=== PATIENT | male | born 1945 | race Asian ===

== ENCOUNTER 2017-12-07 11:40 | Emergency (ER) | payer MEDICARE, OTHER, SELFPAY ==
[2017-12-07] VITALS (11 sets, daily range): BP systolic 123–156; BP diastolic 58–92; PULSE 53–67; RESP 12–18; TEMP 36.3; O2SAT 97–99; BMI 25.8
--- NOTE | 2017-12-07 12:25 | DI.CT.S_ITS ---
PROCEDURE: CT ANGIO HEAD AND NECK INDICATIONS: new headache, retroorbital pain and intermittent blurry visi TECHNIQUE: Pre-contrast 4.5 mm thick sections acquired from the foramen magnum to the vertex. After the administration of intravenous contrast, 1 mm thick sections acquired from the aortic arch through the [place] of [place]. Post-contrast 4.5 mm thick sections then re-acquired from the foramen magnum to the vertex. 3-dimensional ssierkh-pctaaflsx-yrhavuutxz (MIP) and/or volume rendering reformats were acquired of the central intracranial vasculature and neck separately. COMPARISON: None. FINDINGS: Image quality: Excellent. BRAIN: CSF spaces: Ventricles are normal in size and shape. Basal cisterns are patent. No extra-axial fluid collections. Brain: No midline shift. No cranial masses. Punctate hyperdensities are present within the bilateral basal ganglia which likely represent early calcification, but are incompletely characterized. Nation-white matter interface appears intact. Skull and face: Calvarium and facial bones appear intact, without suspicious lesions. Orbits appear normal. Sinuses: Sinuses and mastoids are clear. HEAD CT ANGIOGRAPHY: Anterior circulation: Intracranial internal carotid arteries are normal in size and flow. The flow within the paired anterior cerebral arteries is normal and symmetric. The flow within the middle cerebral arteries is normal and symmetric. The anterior communicating artery is seen. No aneurysms are seen. Posterior circulation: Visualized portions of the vertebral arteries demonstrate normal caliber, and join to form a normal appearing basilar artery. Flow within the posterior cerebral arteries is normal and symmetric. No aneurysms are seen. NECK CT ANGIOGRAPHY: Carotid system: The great vessels demonstrate a conventional anatomy as they arise from the aortic arch. The origins of the common carotid arteries appear patent. The common carotid arteries demonstrate normal caliber and courses. The bifurcation regions are both widely patent. The internal carotid arteries demonstrate normal calibers and courses. Posterior circulation: The origins of the vertebral arteries both appear widely patent. The more superior extracranial portions of both vertebral arteries also demonstrate normal courses and calibers. They join to form a normal appearing basilar artery. Soft tissues: Visualized neck soft tissues demonstrate no suspicious abnormalities. Bones: No suspicious bony lesions. Visualized cervical spine appears normally aligned. IMPRESSION: 1. No stenosis, occlusion, or aneurysm. 2. No acute intracranial findings. Any quantitative measurements of stenosis were performed using NASCET criteria. Dictated by: Elma James M.D. on 12/07/2017 at 13:20 Approved by: Elma James M.D. on 12/07/2017 at 13:29
[2017-12-07 12:35] LABS: Add Manual Diff / Slide Review NO; Basophils Percent Auto 0.5 % (0-2); Eosinophils Percent Auto 2.1 % (2-4); Hematocrit 42.4 % (41-53); Lymphocytes Percent Auto 14.8 % (25-40); Mean Corpuscular HGB Conc 35.3 % (30-36); Mean Corpuscular Hemoglobin 31.7 PG (26-34); Mean Corpuscular Volume 89.7 fL (80-100); Monocytes Percent Auto 9.1 % (3-14); Neutrophils Absolute Auto 4400 /uL (3000-5900); Neutrophils Percent Auto 73.5 % (50-75); Platelet Count 235 X10^3/uL (150-400); Red Blood Cell Count 4.72 X10^6/uL (4.5-5.9); Red Cell Distribution Width 12.1 % (11.6-14.8); White Blood Cell Count 5.9 X10^3/uL (4.5-11.0)
[2017-12-07 12:39] LABS: BUN Creatinine Ratio 21.4 (6-22); Blood Urea Nitrogen 15 mg/dL (9-20); Calcium 9.2 mg/dL (8.4-10.2); Carbon Dioxide 28 mmol/L (22-32); Chloride 98 mmol/L (98-107); Estimated Glomerular Filt Rate > 60.0 mL/min (>60); Glucose 130 mg/dL (80-110); HEMOLYSIS < 15 (0-50); Potassium 3.7 mmol/L (3.4-5.1); Sodium 139 mmol/L (137-145)
[2017-12-07] MEDS: MAGNESIUM SULFATE 2 GM/50 ML PIGGYBACK IV (13:13)
[2017-12-07] MEDS: KETOROLAC 60 MG/2 ML VIAL 15 MG IV (13:13)
[2017-12-07] MEDS: SODIUM CHLORIDE 0.9% 1,000 ML 1000 ML IV (13:14)
[2017-12-07] MEDS: diphenhydrAMINE 50 MG/ML VIAL 25 MG IV ×2 (13:14→16:43)
[2017-12-07] MEDS: PROCHLORPERAZINE 10 MG/2 ML VIAL IV (13:14)
--- NOTE | 2017-12-07 13:23 | PC.NURSE ---
spouse and pt , reports, hx of cva 3 years ago, on plavix,has unsteady gait. reports frontal headache for 5 days, with nausea and visual hard to focus. neuro fast exam, negative
--- NOTE | 2017-12-07 13:24 | PC.NURSE ---
pt reports, just drove in from [place] yesterday, plan to enjoy boating till march.
--- NOTE | 2017-12-07 13:54 | DI.MRI.S_ITS ---
PROCEDURE: MR HEAD/BRAIN WO/W CON INDICATIONS: CVA Hx, Cocciodiomycosis exposure. New onset GRAYSON. TECHNIQUE: Noncontrast axial T1 spin echo, axial T2 fast spin echo, sagittal and axial FLAIR, coronal T2 fast spin echo, axial gradient echo, axial diffusion and ADC through the brain. After the administration of contrast, axial and coronal 3D VIBE or T1 spin echo with fat saturation through the brain. COMPARISON: None. FINDINGS: Image quality: Excellent. CSF Spaces: Basal cisterns are patent. No extra-axial fluid collections. Ventricles are normal in size and shape. Brain: No midline shift. No intracranial bleeds or masses. No abnormal intracranial enhancement. The brainstem appears normal. Diffusion-weighted images demonstrate no acute ischemic insults. No chronic ischemic insults. Normal intravascular flow voids are present. Skull and face: Calvarial marrow is normal in signal. Orbits appear normal. Sinuses: Sinuses and mastoids appear clear. IMPRESSION: 1. No acute intracranial findings. No findings to explain patient's headache. Dictated by: Elma James M.D. on 12/07/2017 at 15:18 Approved by: Elma James M.D. on 12/07/2017 at 15:20
[2017-12-07] MEDS: ACETAMINOPHEN 325 MG TABLET 975 MG PO (16:43)
[2017-12-07] MEDS: HALOPERIDOL 5 MG/ML VIAL 2.5 MG IV (16:43)
--- NOTE | 2017-12-07 17:39 | ED.NEUROSD ---
HPI - Neuro Symptoms/Deficit General Chief Complaint: Neuro Symptoms/Deficit Stated Complaint: BAD HEADACHE,VISION PROBLEM Time Seen by Provider: 12/07/17 12:25 History of Present Illness HPI Narrative: HPI 72-year-old male presents for evaluation of 4-5 days of poorly characterized diffuse headache with a more prominent retro-orbital feature, headache appears to be waxing and waning, headache began gradually, headache is different from prior headaches, headache has had intermittent episodes of mild diplopia/blurry vision; visions currently at baseline. Patient recently returned from [place] where he spent the winter. * Denies changes in vision or hearing, fevers, neck stiffness, rashes, neck pain, temporal pain, jaw pain with chewing, dental pain, minor neck trauma, chiropractic manipulation, or head trauma. * Denies anticoagulation or hypercoaguable history. * No family members with similar symptoms. Unable to identify any higher risk exposures to possible carbon monoxide. M/S/F/SocHx notable for: please see HPI; remainder reviewed with patient and in chart. ROS: Negative constitutional, eye, cardiovascular, pulmonary, GI, , MSK, skin, neurologic, psychiatric, endocrine unless noted in the HPI. Exam Gen: Pleasant, non-toxic appearing, resting comfortably. HEENT: NC, AT. Dentition intact without visible caries. No frontal or maxillary sinus TTP. Temples without TTP bilaterally, equal 2+ temporal artery pulses. No paraspinal posterior neck pain. Resp: CTAB Card: RRR GI: NT/ND : Deferred MSK: No visible deformities, strength and tone WNL. Skin: Normal color with no visible lesions. Neuro: Gen AO x 3, no facial asymmetry, no gaze preference, no slurring of speech. CN II-III: pupils equal and reactive (4->2mm bilaterally); III, IV, : EOMI, V1-V3: sensation to touch bilaterally intact; VII: no facial asymmetry (frown / smile); VIII: no nystagmus; X: phonation intact, uvula midline; XI: trapezius 5/5 bilaterally, XII: tongue midline. Psych: Mood and affect appropriate. Labs / Imaging (pertinent): CTA head and neck: no acute intracranial findings. No stenosis, inclusion, or aneurysm. WBC 5.9, HB 15.0, Na 139, K 3.7 MRI brain: no acute intracranial findings. MDM Previous chart, nursing note, and vitals reviewed. A: 72-year-old male presents for evaluation of 4-5 days of poorly characterized diffuse headache with a more prominent retro-orbital feature, headache appears to be waxing and waning, headache began gradually, headache is different from prior headaches, headache has had intermittent episodes of mild diplopia/blurry vision; visions currently at baseline. Patient recently returned from [place] where he spent the winter. DDx: migraine / tension headache, cluster headache, sentinel bleed/SAH, infection ([employer] vs GRAYSON secondary to non-[employer] focal infection), tumor/mass effect, hypertensive encephalopathy, glaucoma or iritis, idiopathic intracranial hypertension, cavernous sinus thrombosis, temporal arteritis. Evaluation: * Migraine / tension headache - suspect a migraine given the relative exclusion of alternate diagnoses. * Cluster - doubt cluster headache given the absence of unilateral symptoms, eye watering, swelling, or nasal congestion. * [place] bleed/SAH - no evidence by imaging. * Infection - Given lack of rash, meningismus, or fever; doubt bacterial or viral meningitis. Given the patient's wintering in [place] possibility of a coccidiomycosis was considered, however given the absence of meningeal inflammation on MRI as well as a low pretest probability this is been effectively excluded. Similarly the history and exam are without evidence of sinusitis, dental abscesses or clinically significant dental caries. * Mass - no evidence by imaging. * Hypertensive encephalopathy - BP within the brain's autoregulatory zone. * Glaucoma or iritis - As the patient is without reported vision changes, eye pain, and an occular exam without increases in pain on pupillary constriction further evaluation was not pursued. * Ideopathic Intracranial Hypertension - unlikely given the lack of visual symptoms, short duration of symptoms, lack of worsening with valsalva, or more prominent morning symptoms. No evidence by imaging. * Thrombosis - given the lack of identifiable risk factors (preceding facial infection, fever, and hypercoagulability) as well as an absence of deficits on exam doubt both cavernous and venous sinus thrombosis. Furthermore, there is no evidence by imaging. * Temporal Arteritis - given lack of temporally localized headache, temporal tenderness or decreased temporal artery pulse, absent history of jaw claudication or vision changes; doubt. ED Course: 1L NS, 2 g magnesium, 10 mg Compazine, 25 mg diphenhydramine given for initial treatment. Patient with some improvement symptoms. Patient given 2.5 mg haloperidol, acetaminophen, and 25 mg diphenhydramine with significant improvement in symptoms. Disposition: discharge with PCP follow-up. Impression: headache (please reference below for remainder of encounter information) On Anticoagulants: Yes (plavix) Related Data Allergies Allergy/AdvReac Type Severity Reaction Status Date / Time No Known Drug Allergies Allergy Verified 12/07/17 12:35 [facility] Social History Smoking Status: Never smoker Exam Initial Vital Signs Initial Vital Signs: Vital Signs Temperature 97.3 F L 12/07/17 11:42 Pulse Rate 54 L 12/07/17 11:42 Respiratory Rate 18 12/07/17 11:42 Blood Pressure 156/88 H 12/07/17 11:42 Pulse Oximetry 98 12/07/17 11:42 Course Orders Ordered: ED Orders 12/07/17 11:55 Basic Metabolic Panel Stat Complete Blood Count AUTO DIFF Stat 12/07/17 12:25 CT angio head and neck Stat 12/07/17 13:54 MR head/brain wo/w con Stat Discontinued Medications Acetaminophen (Tylenol) 975 mg PO NOW ONE Stop: 12/07/17 15:47 Last Admin: 12/07/17 16:43 Dose: 975 mg Diphenhydramine HCl (Benadryl) 25 mg IV NOW ONE Stop: 12/07/17 12:27 Last Admin: 12/07/17 13:14 Dose: 25 mg Diphenhydramine HCl (Benadryl) 25 mg IV NOW ONE Stop: 12/07/17 15:47 Last Admin: 12/07/17 16:43 Dose: 25 mg Haloperidol (Haldol) 2.5 mg IV NOW ONE Stop: 12/07/17 15:47 Last Admin: 12/07/17 16:43 Dose: 2.5 mg Magnesium Sulfate (Magnesium Sulfate) 2 gm in 50 mls @ 25 mls/hr IV NOW ONE Stop: 12/07/17 14:24 Last Admin: 12/07/17 13:13 Dose: 25 mls/hr Sodium Chloride (Normal Saline 0.9%) 1,000 mls @ 1,000 mls/hr IV BOLUS ONE Stop: 12/07/17 13:24 Last Admin: 12/07/17 13:14 Dose: 1,000 mls/hr Ketorolac Tromethamine (Toradol) 15 mg IV NOW ONE Stop: 12/07/17 12:26 Last Admin: 12/07/17 13:13 Dose: 15 mg Prochlorperazine (Compazine) 10 mg IV NOW ONE Stop: 12/07/17 12:27 Last Admin: 12/07/17 13:14 Dose: 10 mg Vital Signs - 8 hr 12/07/17 11:42 12/07/17 12:22 12/07/17 13:09 Temperature 97.3 F L Pulse Rate 54 L 54 L 56 L Respiratory Rate 18 18 14 Blood Pressure 156/88 H Blood Pressure [Left Arm] 130/92 H 140/66 H Pulse Oximetry 98 98 98 12/07/17 13:14 12/07/17 13:48 12/07/17 14:19 Temperature Pulse Rate 60 53 L 58 L Respiratory Rate 16 15 Blood Pressure 140/66 H Blood Pressure [Left Arm] 143/73 H 132/68 H Pulse Oximetry 99 99 12/07/17 16:19 12/07/17 16:57 12/07/17 17:04 Temperature Pulse Rate 54 L 63 61 Respiratory Rate 12 16 13 Blood Pressure Blood Pressure [Left Arm] 139/82 H 142/67 H 127/66 H Pulse Oximetry 99 97 97 MDM - Neuro Symptoms/Deficit Lab Data Result diagrams: 12/07/17 11:55 12/07/17 11:55 Lab Results 12/07/17 12/07/17 Range/Units 11:55 11:55 WBC 5.9 (4.5-11.0) X10^3/uL RBC 4.72 (4.5-5.9) X10^6/uL Hgb 15.0 (13.5-17.5) g/dL Hct 42.4 (41-53) % MCV 89.7 (80-100) fL MCH 31.7 (26-34) PG MCHC 35.3 (30-36) % RDW 12.1 (11.6-14.8) % Plt Count 235 (150-400) X10^3/uL Neut % (Auto) 73.5 (50-75) % Lymph % (Auto) 14.8 L (25-40) % [place] % (Auto) 9.1 (3-14) % Eos % (Auto) 2.1 (2-4) % Baso % (Auto) 0.5 (0-2) % Neut # (Auto) 4400 (0551-0413) /uL Sodium 139 (137-145) mmol/L Potassium 3.7 (3.4-5.1) mmol/L Chloride 98 (98-107) mmol/L Carbon Dioxide 28 (22-32) mmol/L BUN 15 (9-20) mg/dL Creatinine 0.70 (0.66-1.25) mg/dL Estimated GFR > 60.0 (>60) mL/min BUN/Creatinine Ratio 21.4 (6-22) Glucose 130 H (80-110) mg/dL Calcium 9.2 (8.4-10.2) mg/dL
== END 2017-12-07 18:19 | disposition home or self-care (01) ==
PROVIDERS: Emergency Provider Emergency Medicine
DX: R51 Headache (principal)
CPT/HCPCS: 70496; 70498; 70553; 80048; 81003; 85025; 96361; 96365; 96375; 99284; 99285; 99291; A9579; J0780; J1200; J1630; J1885; Q9967